=== PATIENT | male | born 2000 | race Caucasian/White ===

== ENCOUNTER 2021-04-19 19:14 | Emergency (ER) | payer OTHER ==
[2021-04-19 20:00] VITALS: TEMP 98.3
--- NOTE | 2021-04-19 23:39 | ED ---
General Adult HPI - General Chief complaint: Chest Pain Stated complaint: Chest Pain, SOB Time Seen by Provider: 04/19/21 23:26 Source: patient, RN notes reviewed Mode of arrival: ambulatory Limitations: no limitations - History of Present Illness Initial comments: This is a pleasant 21-year-old male who comes to the ER complaining of a headac he which started earlier today when he woke up. He is also complaining of some nasal stuffiness. Patient complains of a little sinus pressure. Patient states the headache actually resolved when he was in our waiting room. Apparently he told the triage nurse she also was having some chest pains. However this occurred yesterday. Patient has no current chest pain. He states that he had some fleeting chest pains which he has had in the past. Patient does have a history of high blood pressure with takes no medications. No other health issues. Nonsmoker. No alcohol or drug abuse. no fever or chills, no changes in vision or hearing, no sore throat or difficulty with speech, no neck pain, , no abdominal pain, no nausea or vomiting, no changes in urination or bowel movements, no numbness or tingling, no extremity pain, no skin rashes or lesions. - Related Data Allergies Allergy/AdvReac Type Severity Reaction Status Date / Time No Known Allergies Allergy Verified 04/19/21 19:57 Review of Systems ROS Statement: Those systems with pertinent positive or pertinent negative responses have been documented in the HPI. ROS Other: All systems not noted in ROS Statement are negative. Past Medical History Past Medical History: Hypertension History of Any Multi-Drug Resistant Organisms: None Reported Past Surgical History: No Surgical Hx Reported Past Psychological History: No Psychological Hx Reported Smoking Status: Never smoker Past Alcohol Use History: None Reported Past Drug Use History: None Reported General Exam - General Exam Comments Initial Comments: Healthy-appearing 21-year-old male no acute distress. Patient does not appear to be ill or toxic. Limitations: no limitations General appearance: alert, in no apparent distress Head exam: Present: atraumatic, normocephalic, normal inspection Eye exam: Present: normal appearance, PERRL, EOMI. Absent: scleral icterus, conjunctival injection, nystagmus, periorbital swelling, periorbital tenderness Pupils: Present: normal accommodation ENT exam: Present: normal exam, normal oropharynx, mucous membranes moist, TM's normal bilaterally, normal external ear exam. Absent: mucous membranes dry Neck exam: Present: normal inspection, full ROM. Absent: tenderness, meningismus, lymphadenopathy Respiratory exam: Present: normal lung sounds bilaterally, chest wall tenderness. Absent: respiratory distress, wheezes, rales, rhonchi, stridor, accessory muscle use Cardiovascular Exam: Present: regular rate, normal rhythm, normal heart sounds. Absent: systolic murmur, diastolic murmur, rubs, gallop, clicks GI/Abdominal exam: Present: soft, normal bowel sounds. Absent: distended, tenderness, guarding, rebound, rigid Extremities exam: Present: normal inspection, full ROM, normal capillary refill. Absent: tenderness, pedal edema, joint swelling, calf tenderness Back exam: Present: normal inspection Neurological exam: Present: alert, oriented X3, CN II-XII intact, normal gait, abnormal gait. Absent: altered, motor sensory deficit, reflexes normal Psychiatric exam: Present: normal affect, normal mood Skin exam: Present: warm, dry, intact, normal color. Absent: rash Course Vital Signs 04/19/21 04/20/21 19:57 00:20 Temperature 98.3 F Pulse Rate 99 72 Respiratory 20 18 Rate Blood Pressure 141/94 O2 Sat by Pulse 100 98 Oximetry Medical Decision Making - Medical Decision Making Given the new onset headache. I did advise a computed tomography scan for the patient. Patient had no chest pain or shortness breath at the time I was seeing him. Patient is refusing computed tomography scan. Computed tomography scan w as deferred through shared decision-making. We did discuss risks for his benefits. Patient is alert and oriented 4 and able to make his own medical decisions. EKG done at 8:03 PM and read by the ED attending physician reveals some involuted T waves and V3. Patient does have S1 every 3 T3 pattern. I did advise blood work with a d-dimer. D-dimer negative, again, patient refuses computed tomography scan. Patient reevaluated prior to discharge is neurologically intact. Essentially asymptoma tic. - Lab Data Result diagrams: 04/19/21 23:57 04/19/21 23:57 Lab Results 04/19/21 04/19/21 04/19/21 Range/Units 23:35 23:57 23:57 WBC 9.5 (4.0-11.0) k/uL RBC 4.82 (4.30-5.90) m/uL Hgb 15.0 (13.0-17.5) gm/dL Hct 43.7 (39.0-53.0) % MCV 90.7 (80.0-100.0) fL MCH 31.2 (25.0-35.0) pg MCHC 34.3 (31.0-37.0) g/dL RDW 12.4 (11.5-15.5) % Plt Count 231 (150-450) k/uL MPV 7.4 Neutrophils % 73 % Lymphocytes % 14 % Monocytes % 8 % Eosinophils % 1 % Basophils % 1 % Neutrophils # 6.9 (1.3-7.7) k/uL Lymphocytes # 1.3 (1.0-4.8) k/uL Monocytes # 0.8 (0-1.0) k/uL Eosinophils # 0.1 (0-0.7) k/uL Basophils # 0.1 (0-0.2) k/uL D-Dimer 0.23 (<0.60) mg/L FEU Sodium (137-145) mmol/L Potassium (3.5-5.1) mmol/L Chloride (98-107) mmol/L Carbon Dioxide (22-30) mmol/L Anion Gap mmol/L BUN (9-20) mg/dL Creatinine (0.66-1.25) mg/dL Est GFR (CKD-EPI)AfAm (>60 ml/min/1.73 sqM) Est GFR (CKD-EPI)NonAf (>60 ml/min/1.73 sqM) Glucose (74-99) mg/dL Calcium (8.4-10.2) mg/dL Magnesium (1.6-2.3) mg/dL Total Bilirubin (0.2-1.3) mg/dL AST (17-59) U/L ALT (4-49) U/L Alkaline Phosphatase (38-126) U/L Total Protein (6.3-8.2) g/dL Albumin (3.5-5.0) g/dL Coronavirus (PCR) Not Detected (Not Detectd) 04/19/21 Range/Units 23:57 WBC (4.0-11.0) k/uL RBC (4.30-5.90) m/uL Hgb (13.0-17.5) gm/dL Hct (39.0-53.0) % MCV (80.0-100.0) fL MCH (25.0-35.0) pg MCHC (31.0-37.0) g/dL RDW (11.5-15.5) % Plt Count (150-450) k/uL MPV Neutrophils % % Lymphocytes % % Monocytes % % Eosinophils % % Basophils % % Neutrophils # (1.3-7.7) k/uL Lymphocytes # (1.0-4.8) k/uL Monocytes # (0-1.0) k/uL Eosinophils # (0-0.7) k/uL Basophils # (0-0.2) k/uL D-Dimer (<0.60) mg/L FEU Sodium 137 (137-145) mmol/L Potassium 3.8 (3.5-5.1) mmol/L Chloride 98 (98-107) mmol/L Carbon Dioxide 30 (22-30) mmol/L Anion Gap 9 mmol/L BUN 12 (9-20) mg/dL Creatinine 0.88 (0.66-1.25) mg/dL Est GFR (CKD-EPI)AfAm >90 (>60 ml/min/1.73 sqM) Est GFR (CKD-EPI)NonAf >90 (>60 ml/min/1.73 sqM) Glucose 97 (74-99) mg/dL Calcium 9.5 (8.4-10.2) mg/dL Magnesium 1.9 (1.6-2.3) mg/dL Total Bilirubin 0.6 (0.2-1.3) mg/dL AST 21 (17-59) U/L ALT 22 (4-49) U/L Alkaline Phosphatase 79 (38-126) U/L Total Protein 8.0 (6.3-8.2) g/dL Albumin 4.6 (3.5-5.0) g/dL Coronavirus (PCR) (Not Detectd) Disposition Clinical Impression: Headache, Acute chest wall pain, Viral URI Disposition: HOME SELF-CARE Condition: Stable Instructions (If sedation given, give patient instructions): Upper Respiratory Infection (ED), Acute Headache (ED), Chest Wall Pain (ED) Additional Instructions: Follow-up with your regular physician as directed. Return to the ER immediately if any symptoms worsen, new symptoms arise, or any other problems develop. Is patient prescribed a controlled substance at d/c from ED?: No Referrals: Oren Solitario MD [Primary Care Provider] - 1-2 days Time of Disposition: 23:39
[2021-04-19] MEDS ORDERED: SODIUM CHLORIDE 0.9% 1,000 ML IV STA (23:43)
[2021-04-20 00:06] LABS: Basophils # (A) 0.1 k/uL (0-0.2); Basophils % (A) 1 %; Eosinophils # (A) 0.1 k/uL (0-0.7); Eosinophils % (A) 1 %; HCT 43.7 % (39.0-53.0); Lymphocytes # (A) 1.3 k/uL (1.0-4.8); Lymphocytes % (A) 14 %; MCH 31.2 pg (25.0-35.0); MCHC 34.3 g/dL (31.0-37.0); MCV 90.7 fL (80.0-100.0); Mean Platelet Volume 7.4; Monocytes # (A) 0.8 k/uL (0-1.0); Monocytes % (A) 8 %; Neutrophils # (A) 6.9 k/uL (1.3-7.7); Neutrophils % (A) 73 %; Platelet Count 231 k/uL (150-450); RBC 4.82 m/uL (4.30-5.90); RDW 12.4 % (11.5-15.5); WBC 9.5 k/uL (4.0-11.0)
--- NOTE | 2021-04-20 00:14 | XR ---
EXAMINATION TYPE: XR chest 2V DATE OF EXAM: 04/20/2021 COMPARISON: NONE HISTORY: Pain TECHNIQUE: 2 views FINDINGS: Heart and mediastinum are normal. Lungs are clear. Diaphragm is normal. Bony thorax appears normal. IMPRESSION: Normal chest
[2021-04-20 00:16] LABS: ALT 22 U/L (4-49); AST 21 U/L (17-59); African American GFR (CKD) >90 (>60 ml/min/1.73 sqM); Albumin 4.6 g/dL (3.5-5.0); Alkaline Phosphatase 79 U/L (38-126); Anion Gap 9 mmol/L; Blood Urea Nitrogen 12 mg/dL (9-20); Calcium 9.5 mg/dL (8.4-10.2); Carbon Dioxide 30 mmol/L (22-30); Chloride 98 mmol/L (98-107); Glucose 97 mg/dL (74-99); Magnesium 1.9 mg/dL (1.6-2.3); Non-African American GFR(CKD) >90 (>60 ml/min/1.73 sqM); Potassium 3.8 mmol/L (3.5-5.1); Sodium 137 mmol/L (137-145); Total Bilirubin 0.6 mg/dL (0.2-1.3)
[2021-04-20 00:20] VITALS: PULSE 72
[2021-04-20 00:57] VITALS: BP 135/72; RESP 16
== END 2021-04-20 00:53 | disposition home or self-care (01) ==
LOC: EC 19:14
DX: J06.9 Acute upper respiratory infection, unspecified (principal); R07.89 Other chest pain; Z20.822 Contact with and (suspected) exposure to COVID-19; I10 Essential (primary) hypertension
CPT/HCPCS: 36415; 71046; 80053; 83735; 84484; 85025; 85379; 87635; 99284

== ENCOUNTER → 2022-11-15 | Outpatient (CLI) | payer OTHER ==
--- NOTE | 2022-11-15 17:21 | XR ---
EXAMINATION TYPE: XR foot complete RT, XR ankle complete RT DATE OF EXAM: 11/15/2022 4:59 PM CLINICAL INDICATION:Male, 22 years old with history of S93.601A; COMPARISON: None TECHNIQUE: XR foot complete RT, XR ankle complete RT examined in the AP, oblique, and lateral project ions. FINDINGS: No evidence of any acute osseous pathology. No evidence of soft tissue swelling. Joints are preserve d. 2 osseous fragments are seen near the deltoid ligament which are well-corticated. IMPRESSION: 1. No evidence of acute fracture. 2. Findings suggestive remote deltoid ligament injuries.
== END | disposition home or self-care (01) ==
LOC: RADXRMAIN 16:46
PROVIDERS: ATTEND Emergency Medicine
DX: S93.601A Unspecified sprain of right foot, initial encounter (principal); S93.401A Sprain of unspecified ligament of right ankle, initial encounter; X58.XXXA Exposure to other specified factors, initial encounter